=== PATIENT | male | born 1985 | race Caucasian/White ===

== ENCOUNTER 2023-01-03 17:48 | Emergency (ER) | payer OTHER ==
[~2023-01-03] VITALS: Ht 188 cm; Wt 149.7 kg
[2023-01-03] MEDS ORDERED: KETOROLAC 30MG VIAL (30MG/ML) IM ONE (19:30)
[2023-01-03 19:37] LABS: BASOPHILS % (AUTO) 0.8 % (0.0-5.0); EOSINOPHILS % (AUTO) 1.9 % (0.0-8.0); HEMATOCRIT 47.9 % (42-54); LYMPHOCYTES % (AUTO) 36.2 % (21.0-51.0); MEAN CORPUSCULAR HEMOGLOBIN 29.4 pg (27.0-33.0); MEAN CORPUSCULAR HGB CONC 32.8 g/dL (32.0-36.0); MEAN CORPUSCULAR VOLUME 89.7 fL (79-99); MONOCYTES % (AUTO) 9.7 % (3.0-13.0); NEUTROPHILS % (AUTO) 51.1 % (40.0-77.0); PLATELET COUNT (AUTO) 321 K/uL (130-400); RED BLOOD CELL COUNT(AUTO) 5.34 MIL/uL (4.50-6.20); WHITE BLOOD COUNT (AUTO) 6.2 K/uL (4.8-10.8)
[2023-01-03 19:40] LABS: APPEARANCE,URINE CLEAR (CLEAR); BILIRUBIN,URINE NEGATIVE (NEGATIVE); COLOR,URINE LIGHT-YELLOW (YELLOW); GLUCOSE, URINE (UA) NEGATIVE (NEGATIVE); KETONES,URINE NEGATIVE (NEGATIVE); LEUKOCYTE ESTERASE ,URINE 25 Leu/uL (NEGATIVE); NITRATE,URINE NEGATIVE (NEGATIVE); OCCULT BLOOD,URINE NEGATIVE (NEGATIVE); PROTEIN,URINE NEGATIVE (NEGATIVE); UROBILINOGEN,URINE 0.2 mg/dL (0.2-1.0)
[2023-01-03 19:46] LABS: CREATININE 0.8 mg/dL (0.5-1.5); POTASSIUM 4.3 mmol/L (3.5-5.1)
[2023-01-03 19:51] LABS: ALBUMIN 3.7 g/dL (3.5-5.0)
[2023-01-03 19:52] LABS: BACTERIA,URINE RARE /HPF (None Seen); MUCUS,URINE RARE LPF (None Seen); RBC,URINE 0-1 /HPF (0-1)
[2023-01-03] MEDS ORDERED: LEVO-70 PO (20:57)
[2023-01-03] MEDS ORDERED: IBUP-2070 PO (20:57)
[2023-01-03 21:00] VITALS: BP 111/74
== END 2023-01-03 20:53 | disposition home or self-care (01) ==
LOC: EDH 17:48
DX: N45.3 Epididymo-orchitis (principal); Z98.890 Other specified postprocedural states
CPT/HCPCS: 99285; 80053; 85025; 87797; 87486; 81001; 36415; 76870; 96372; J1885

== ENCOUNTER 2025-05-25 17:16 | Emergency (ER) | payer OTHER ==
[~2025-05-25] VITALS: Ht 188 cm; Wt 127.0 kg
[~2025-05-25 17:16] MED LIST: IBUP-1492 PO; LEVO-70 PO
[2025-05-25 18:11] LABS: IMMATURE GRANULOCYTE ABSOLUTE 0.01 K/uL (0-1); NUCLEATED RED BLOOD CELLS 0.0 % (0.0-0.19); PLATELET COUNT (AUTO) 267 K/uL (130-400); RED BLOOD CELL COUNT(AUTO) 5.66 MIL/uL (4.50-6.20); RED CELL DISTRIBUTION WIDTH 12.7 % (11.0-15.5); WHITE BLOOD COUNT (AUTO) 5.4 K/uL (4.8-10.8)
[2025-05-25 18:19] LABS: CREATININE 1.0 mg/dL (0.5-1.3); GLOMERULAR FILTR. RATE CALC 99.0 mL/min (>90); GLUCOSE,RANDOM 81.0 mg/dL (70-105); SODIUM SERUM 139.0 mmol/L (136-145); UREA NITROGEN, BLOOD 12.0 mg/dL (7-18)
[2025-05-25 19:57] LABS: GLUCOSE, URINE (UA) NEGATIVE (NEGATIVE); LEUKOCYTE ESTERASE ,URINE NEGATIVE Leu/uL (NEGATIVE); NITRATE,URINE NEGATIVE (NEGATIVE); OCCULT BLOOD,URINE NEGATIVE (NEGATIVE)
[2025-05-25 19:59] LABS: ADD UA MICROSCOPIC YES
[2025-05-25 20:14] LABS: APPEARANCE,URINE CLEAR (CLEAR)
--- NOTE | 2025-05-25 20:34 | HMCIMG ---
EXAM: CT Abdomen and Pelvis Without IV Contrast CLINICAL HISTORY: Patient presents with low back pain radiating to the flank. TECHNIQUE: Axial computed tomography images of the abdomen and pelvis were obtained without intravenous contrast. CONTRAST: No IV contrast. COMPARISON: None provided. FINDINGS: LUNG BASES: The lung bases are clear. No pleural effusions. LIVER: The liver is enlarged, measuring 18 cm in craniocaudal span. No focal hepatic lesion. GALLBLADDER AND BILE DUCTS: The gallbladder is contracted. No radio-opaque gallstones or biliary ductal dilatation. PANCREAS: The pancreas is unremarkable. SPLEEN: The spleen is unremarkable. ADRENAL GLANDS: The adrenal glands are unremarkable. KIDNEYS, URETERS, AND BLADDER: The kidneys are within normal limits. No hydronephrosis, hydroureter, or urinary calculi. The urinary bladder is unremarkable. STOMACH AND BOWEL: The stomach and bowel are unremarkable. No bowel obstruction, enteritis, or colitis. Mild constipation. APPENDIX: No CT features of acute appendicitis. PERITONEUM: No free fluid or free air. LYMPH NODES: No lymphadenopathy. REPRODUCTIVE: Unremarkable as visualized. VASCULATURE: No abdominal aortic aneurysm. BONES: No aggressive or acute osseous lesion. A spinal nerve stimulator is in place. Postsurgical changes in the lumbosacral spine. ABDOMINAL WALL: A fat-containing left inguinal hernia is present. IMPRESSION: No acute intra-abdominal or pelvic abnormality. No renal, ureteral, or bladder calculus. Fat-containing left inguinal hernia. Hepatomegaly measuring 18 cm in craniocaudal span. Contracted gallbladder without biliary ductal dilatation. Mild constipation. /[place]
--- NOTE | 2025-05-25 20:52 | ERN ---
General Chief Complaint: Low Back Pain/Injury Stated Complaint: BACK PAIN Time Seen by MD: 17:19 Time Seen by Midlevel: 17:19 Source: patient History of Present Illness Initial Comments 31-year-old male with a history of chronic back pain presents to ER for evaluation of lower back pain Allergies: Coded Allergies: No Known Drug Allergies (Unverified Allergy, Unknown, 01/03/23) Home Meds Active Scripts Ibuprofen (Ibuprofen) 600 Mg Tablet, 600 MG PO Q6H PRN for PAIN, #30 TAB Prov:CLIVE BOYER V [employer]ANT 01/03/23 Levofloxacin (Levofloxacin) 500 Mg Tablet, 500 MG PO DAILY, #10 TAB Prov:CLIVE BOYER V [employer]ATORY CONSULTANT 01/03/23 Past Medical History Past Medical History: Other Medical History Other: CHRONIC BACK PAIN. Past Surgical History: Other Surgical History Other: BACK SX,OORCHECTOMY, NERVE STIMULATOR, AND MORPHINE PUMP. ROS Dictation CONSTITUTIONAL: Negative except for HPI HEAD/FACE: Negative except for HPI EENT: Negative except for HPI RESPIRATORY: Negative except for HPI GASTROINTESTINAL/ABDOMINAL: Negative except for HPI GENITOURINARY: Negative except for HPI MUSCULOSKELETAL: Negative except for HPI INTEGUMENTARY: Negative except for HPI NEUROLOGICAL/PSYCH: Negative except for HPI HEMATOLOGIC/LYMPHATIC: Negative except for HPI All Systems Negative, Except as noted above. 13 point review of systems assessed and all negative except for above. Physical Exam Physical Exam Dictation Vital Signs reviewed General Appearance: Alert, oriented x 3, no acute distress, well developed, nourished. Head and Face: non-traumatic. Eyes: PERRL, pink conjunctivas, eyelid no trauma, anterior chamber with arcus senilis. Ears: Pinnas intact and no signs of trauma or erythema ear canals clear and no discharge TM no erythema Nose: No discharge, no bleeding. Oropharynx: Mouth normal, tongue pink, pharynx clear,no erythema, tonsils no exudates, no abscesses noted, mucous membrane moist Neck: Supple, non-tender, no thyromegaly, no masses, no JVD, no bruits Breast:Deferred Chest:No tenderness, no crepitus, no paradoxical movement, no retractions Lungs:Clear, well-ventilated, symmetric, no rales, no wheezing, no rhonchi, no stridor, good breath sounds bilaterally Heart: Regular rate, regular rhythm, no murmur, no gallops Vascular: no peripheral edema, Abdomen: Soft, positive bowel sounds, nondistended, no guarding, nontender, no rebound, no masses no hepatomegaly, no splenomegaly, no Vaughn's sign, no hernias. Rectal: Deferred Genital: Deferred Neurological: Normal speech, motor function intact, sensory function intact Musculoskeletal: Neck nontender, full range of motion, back nontender, full range of motion, Extremities: nontender, full range of motion Skin: Color pink, dry, no turgor, no rash, no lacerations, no abrasions, no contusions. Lymphatic: Deferred Results Laboratory and Microbiology Lab and Micro Result Laboratory Tests Test 05/25/25 17:59 05/25/25 19:44 White Blood Count 5.4 K/uL (4.8-10.8) Red Blood Count 5.66 MIL/uL (4.50-6.20) Hemoglobin 17.1 g/dL (14.0-18.0) Hematocrit 51.5 % (42-54) Mean Corpuscular Volume 91.0 fL (79-99) Mean Corpuscular Hemoglobin 30.2 pg (27.0-33.0) Mean Corpuscular Hemoglobin Concent 33.2 g/dL (32.0-36.0) Red Cell Distribution Width 12.7 % (11.0-15.5) Platelet Count 267 K/uL (130-400) Mean Platelet Volume 11.9 fL (7.5-10.5) H Immature Granulocyte % (Auto) 0.2 % (0-1) Neutrophils (%) (Auto) 50.5 % (40.0-77.0) Lymphocytes (%) (Auto) 38.7 % (21.0-51.0) Monocytes (%) (Auto) 8.1 % (3.0-13.0) Eosinophils (%) (Auto) 1.8 % (0.0-8.0) Basophils (%) (Auto) 0.7 % (0.0-5.0) Neutrophils # (Auto) 2.7 K/uL (1.8-7.7) Lymphocytes # (Auto) 2.1 K/uL (1.0-4.8) Monocytes # (Auto) 0.4 K/uL (0.1-1.0) Eosinophils # (Auto) 0.10 K/uL (0.00-0.70) Basophils # (Auto) 0.04 K/uL (0.00-0.20) Absolute Immature Granulocyte (auto 0.01 K/uL (0-1) Nucleated Red Blood Cells 0.0 % (0.0-0.19) Sodium Level 139 mmol/L (136-145) Potassium Level 4.6 mmol/L (3.5-5.1) Chloride Level 102 mmol/L (101-111) Carbon Dioxide Level 33 mmol/L (21-32) H Blood Urea Nitrogen 12 mg/dL (7-18) Creatinine 1.0 mg/dL (0.5-1.3) Glomerular Filtration Rate Calc 99 mL/min (>90) Random Glucose 81 mg/dL (70-105) Total Calcium 9.0 mg/dL (8.5-10.1) Urine Color LIGHT-YELLOW (YELLOW) Urine Appearance CLEAR (CLEAR) Urine pH 7.0 (5.0-8.0) Urine Specific [place] 1.027 (1.001-1.031) Urine Protein 10 mg/dL (NEGATIVE) H Urine Glucose (UA) NEGATIVE mg/dL (NEGATIVE) Urine Ketones NEGATIVE mg/dL (NEGATIVE) Urine Occult Blood NEGATIVE (NEGATIVE) Urine Nitrate NEGATIVE (NEGATIVE) Urine Bilirubin NEGATIVE mg/dL (NEGATIVE) Urine Urobilinogen 0.2 mg/dL (0.2-1.0) Urine Leukocyte Esterase NEGATIVE Danni/uL Urine RBC None /HPF (0-1) Urine WBC None /HPF (0-1) Urine Amorphous Crystals (Auto) MOD /LPF (None Seen) Urine Bacteria None /HPF (None Seen) Labs Reviewed?: Yes MDM MDM: Differential diagnosis: Fall, contusion, fracture, chronic back pain, incarcerated hernia, UTI There are no social concerns with this patient. Prescription drug management Prescriptions will include: None Medical management and examination interpretation discussions were had by me with other qualified healthcare professionals as indicated for the patient's c are. ED Course Orders Procedure Category Date Status Time Cbc With Differential LAB 05/25/25 Complete 17: Basic Metabolic Panel LAB 05/25/25 Complete 17:26 Ct Abdomen/Pelvis W/O CT 05/25/25 Resulted Contrast 17:26 Urinalysis Profile LAB 05/25/25 Complete 17:27 Hydromorphone 0.5mg PHA 05/25/25 In Process Syg (Dilaudid 0.5mg 21:00 Current Medications Medications (Trade) Dose Ordered Sig/Claudia Route PRN Reason Start Time Stop Time Status Last Admin Dose Admin Hydromorphone HCl (DiLAUDid 0.5MG INJ) 0.5 mg ONCE ONCE IM 05/25/25 21:00 05/25/25 21:01 Vital Signs Date Time Temp Pulse Resp B/P (MAP) Pulse Ox O2 Delivery O2 Flow Rate FiO2 05/25/25 17:18 97.5 74 16 138/83 98 Room Air 0 DX & DISP Disposition: Discharge Departure Impression: Primary Impression: Chronic back pain Condition: Stable Additional Instructions: Your blood work is unremarkable. There are no signs of infection.. Your kidney function is normal. Your urinalysis does not show any evidence of infection Your CT scan does not show any evidence of an incarcerated hernia. Your pain is most likely related to your chronic back pain. 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 Referrals: KATIE QUIJANO M.D. (PCP) Time of Disposition: 20:41 I have reviewed the case, and I agree with, Diagnosis and Plan I performed the substantive portion of the visit. I have reviewed and personally made and approve the management plan that is documented in the note by myself or the WADE. I acknowledge for responsibility for the patient's management plan. JT BURKETT PAC May 25, 2025 20:52
[2025-05-25 21:12] VITALS: BP 134/86; PULSE 56; RESP 18; TEMP 98.2; O2SAT 98
== END 2025-05-25 21:15 | disposition home or self-care (01) ==
LOC: EDH 17:16
DX: G89.29 Other chronic pain (principal); M54.50 Low back pain, unspecified
CPT/HCPCS: 99285; 74176; 80048; 85025; 81001; 36415; 96372; J1171